=== PATIENT | female | born 1975 | race Caucasian/White ===

== ENCOUNTER 2019-09-07 22:23 | Emergency (ER) | payer BC, OTHER ==
[~2019-09-07] VITALS: Ht 172.7 cm; Wt 63.5 kg
[2019-09-07 22:34] VITALS: BP 125/63
--- NOTE | 2019-09-07 23:00 | NUR ---
DR WINN AT BEDSIDE
--- NOTE | 2019-09-07 23:25 | NUR ---
1500 ML OUTPUT DRAINED.
== END 2019-09-07 23:26 | disposition home or self-care (01) ==
LOC: ER 22:24
DX: R33.9 Retention of urine, unspecified (principal); Z98.890 Other specified postprocedural states